=== PATIENT | female | born 2000 | race Caucasian/White ===

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

== ENCOUNTER → 2020-11-07 15:41 | Outpatient (CLI) | payer OTHER, SELFPAY ==
[2020-11-07 17:21] LABS: Basophils # 0.1 K/mm3 (0-0.2); Basophils % 0.6 % (0.1-2.0); Eosinophils # 0.1 K/mm3 (0.0-0.4); Eosinophils % 1.1 % (0.1-12.0); Hematocrit 42.7 % (37.0-47.0); Lymphocytes # 3.7 K/mm3 (0.7-4.5); Lymphocytes % 42.9 % (10-50); Mean Corpuscular HGB Conc 35.2 g/dL (31.8-35.4); Mean Corpuscular Hemoglobin 29.7 pg (27.0-31.2); Mean Corpuscular Volume 84.5 fl (81-99); Mean Platelet Volume 8.7 fl (7.4-10.4); Monocytes # 0.5 K/mm3 (0.1-1.0); Neutrophils # 4.3 K/mm3 (1.8-7.8); Neutrophils % 49.4 % (37.0-80.0); Platelet Count 347 K/mm3 (142-424); Red Blood Count 5.06 M/mm3 (4.20-5.40); Red Cell Distribution Width 13.3 % (11.5-17.5); White Blood Count 8.7 K/mm3 (4.5-13.0)
[2020-11-07 17:32] LABS: Chloride 103 mmol/L (98-107); Potassium 4.5 mmoL/L (3.5-5.1); Sodium 138 mmol/L (136-145)
[2020-11-07 17:34] LABS: Alanine Aminotransferase 33 U/L (12-78); Alkaline Phosphatase 96 U/L (38-126); Anion Gap 18.5 mEq/L (5-15); Aspartate Amino Transferase 34 U/L (14-36); Bilirubin,Total 0.9 mg/dl (0.2-1.3); Blood Urea Nitrogen 10 mg/dl (7-17); Carbon Dioxide 21 mmol/L (22.0-30.0); Estimated Glomerular Filt Rate 127 ml/min (>60); GFR (African American) 154 ML/MIN (>60); Iron 132 ug/dL (37-170)
[2020-11-07 17:35] LABS: Albumin Level 4.7 g/dl (3.5-5.0); Albumin/Globulin Ratio 1.5 (1.1-1.8); Calcium 9.5 mg/dl (8.4-10.2); Globulin 3.1 g/dL (1.3-3.2); Glucose 95 mg/dl (74-100); Total Protein,Serum 7.8 g/dl (6.3-8.2)
[2020-11-07 17:45] LABS: Total Iron Binding Capacity 327 ug/dL (265-497)
[2020-11-07 17:53] LABS: Triiodothryronine (T3) Uptake 32 % (23.5-40.5)
[2020-11-07 17:54] LABS: T4 (Thyroxine) 9.5 ug/dl (5.53-11.0)
[2020-11-07 18:00] LABS: Hemoglobin A1C 4.7 % (4.0-6.0)
[2020-11-07 18:07] LABS: Thyroid Stimulating Hormone 6.07 uIU/mL (0.465-4.68)
[2020-11-07 19:02] LABS: Vitamin B12 507 pg/mL (239-931)
[2020-11-09 10:11] LABS: FSH 4.9 mIU/mL (.); Progesterone 0.1 ng/mL (.)
[2020-11-11 20:09] LABS: Testosterone, Total, LC/MS 10.8 ng/dL (10.0-55.0)
[2020-11-15 18:15] LABS: 1,25 Dihydroxy Vitamin D 38 pg/mL (.); 1,25-Dihydroxy, Vitamin D-2 <10 pg/mL (.); 1,25-Dihydroxy, Vitamin D-3 38 pg/mL (.)
[2020-11-17 03:41] LABS: Estrogen 246 pg/mL (.)
== END ==
PROVIDERS: Visit Provider Nurse Practitioner Psychiatric/Mental Health
DX: Z00.00 Encounter for general adult medical examination without abnormal findings (principal); Z79.899 Other long term (current) drug therapy; R53.83 Other fatigue; E66.9 Obesity, unspecified; Z68.34 Body mass index [BMI] 34.0-34.9, adult
CPT/HCPCS: 36415; 80053; 82607; 82652; 82672; 83001; 83036; 83540; 83550; 84144; 84403; 84436; 84443; 84479; 85025

== ENCOUNTER → 2021-02-06 13:29 | Outpatient (CLI) | payer OTHER, SELFPAY | PROVIDERS: Visit Provider Physician Assistant | DX: Z20.822 Contact with and (suspected) exposure to COVID-19 (principal); R69 Illness, unspecified | CPT/HCPCS: C9803; U0003; U0005 ==

== ENCOUNTER → 2021-03-20 19:27 | Outpatient (CLI) | payer OTHER, SELFPAY ==
[2021-03-20 20:18] LABS: Free T4 (Free Thyroxine) 1.17 ng/dl (0.78-2.19)
[2021-03-20 20:47] LABS: Thyroid Stimulating Hormone 2.54 uIU/mL (0.465-4.68)
== END ==
PROVIDERS: Visit Provider Physician Assistant
DX: E03.9 Hypothyroidism, unspecified (principal)
CPT/HCPCS: 84439; 84443

== ENCOUNTER → 2021-06-12 16:40 | Outpatient (CLI) | payer OTHER, SELFPAY ==
[2021-06-12 17:23] LABS: Basophils # 0.1 K/mm3 (0-0.2); Basophils % 1.6 % (0.1-2.0); Eosinophils % 0.7 % (0.1-12.0); Hematocrit 46.8 % (37.0-47.0); Hemoglobin 14.8 g/dL (12.2-16.2); Lymphocytes # 2.9 K/mm3 (0.7-4.5); Lymphocytes % 44.9 % (10-50); Mean Corpuscular HGB Conc 31.6 g/dL (31.8-35.4); Mean Corpuscular Hemoglobin 29.4 pg (27.0-31.2); Mean Corpuscular Volume 92.8 fl (81-99); Mean Platelet Volume 9.8 fl (7.4-10.4); Monocytes # 0.5 K/mm3 (0.1-1.0); Monocytes % 7.8 % (1.7-9.3); Neutrophils # 2.9 K/mm3 (1.8-7.8); Neutrophils % 44.9 % (37.0-80.0); Platelet Count 356 K/mm3 (142-424); Red Blood Count 5.05 M/mm3 (4.20-5.40); Red Cell Distribution Width 13.4 % (11.5-17.5); White Blood Count 6.4 K/mm3 (4.5-13.0)
[2021-06-12 17:26] LABS: Alanine Aminotransferase 46 U/L (12-78); Albumin Level 4.8 g/dl (3.5-5.0); Albumin/Globulin Ratio 1.7 (1.1-1.8); Alkaline Phosphatase 72 U/L (38-126); Anion Gap 13.3 mEq/L (5-15); Aspartate Amino Transferase 44 U/L (14-36); Bilirubin,Total 0.7 mg/dl (0.2-1.3); Blood Urea Nitrogen 16 mg/dl (7-17); Calcium 9.7 mg/dl (8.4-10.2); Carbon Dioxide 25 mmol/L (22.0-30.0); Chloride 104 mmol/L (98-107); Estimated Glomerular Filt Rate 127 ml/min (>60); GFR (African American) 154 ML/MIN (>60); Globulin 2.8 g/dL (1.3-3.2); Glucose 93 mg/dl (74-100); Potassium 4.3 mmoL/L (3.5-5.1); Sodium 138 mmol/L (136-145); Total Protein,Serum 7.6 g/dl (6.3-8.2)
[2021-06-12 17:57] LABS: Thyroid Stimulating Hormone 1.19 uIU/mL (0.465-4.68)
[2021-06-14 09:34] LABS: FSH 8.1 mIU/mL (.); LH 7.7 mIU/mL (.)
[2021-06-15 07:38] LABS: Testosterone,Free 1.4 pg/mL (0.0-4.2)
== END ==
PROVIDERS: Visit Provider Physician Assistant
DX: N93.9 Abnormal uterine and vaginal bleeding, unspecified (principal); E03.9 Hypothyroidism, unspecified
CPT/HCPCS: 80053; 83001; 83002; 84402; 84443; 85025

== ENCOUNTER → 2021-06-18 14:56 | Outpatient (CLI) | payer OTHER, SELFPAY ==
--- NOTE | 2021-06-18 14:56 | US_ITS ---
FINAL REPORT CLINICAL HISTORY: ?PCOS FINDINGS: Pelvic Ultrasound Technique: Transvaginal and transabdominal sonographic images of the pelvis were obtained. Findings: The uterus is normal in size. The endometrium is within normal limits. The right ovary measures up to 3 cm. There are multiple subcentimeter anechoic foci within the right ovary favoring follicles. The left ovary is not visualized. There is no significant free fluid. IMPRESSION: Multiple subcentimeter anechoic structures in the right ovary favor follicles. Left ovary not visualized. Reviewed, Interpreted and Dictated by Juan Dixon MD Transcribed by Gabriel Dixon Authenticated by Juan Dixon MD on 06/18/2021 04:52:41 PM [facility]
== END ==
PROVIDERS: PCP Physician Assistant; Visit Provider Physician Assistant
DX: N92.1 Excessive and frequent menstruation with irregular cycle (principal)
CPT/HCPCS: 76830

== ENCOUNTER → 2021-06-28 08:12 | Outpatient (CLI) | payer OTHER, SELFPAY ==
--- NOTE | 2021-06-28 08:13 | MR_ITS ---
PROCEDURE INFORMATION: Exam: MR Pelvis Without Contrast Exam date and time: 06/28/2021 8:13 AM Age: 20 years old Clinical indication: Abnormal findings; Abnormal imaging test; Additional info: Left ovary not visible on US TECHNIQUE: Imaging protocol: Magnetic resonance images of the pelvis without intravenous contrast. COMPARISON: Report from transvaginal ultrasound 06/18/2021 (images not available) FINDINGS: Limitations: Motion artifact. Intraperitoneal space: A mild amount of fluid is present adjacent to each ovary, right greater than left. Reproductive: The right ovary measures 3.7 x 1.9 x 3.8 cm with a volume of 14 mL. The left ovary measures 2.2 x 2 x 3.4 cm with a volume of 7.8 mL. Each ovary contains multiple cysts/follicles with a predominantly peripheral location. No suspicious mass. No uterine abnormality. Bones/joints: There is no suspicious bone lesion or fracture. Soft tissues: There is no suspicious soft tissue mass. IMPRESSION: 1. Prominent ovaries with multiple peripherally located cysts/follicles, which could represent polycystic ovarian morphology. 2. Mild free fluid adjacent to each ovary.
== END ==
PROVIDERS: PCP Physician Assistant; Visit Provider Physician Assistant
DX: R93.89 Abnormal findings on diagnostic imaging of other specified body structures (principal)
CPT/HCPCS: 72195

== ENCOUNTER → 2022-01-15 06:34 | Outpatient (CLI) | payer OTHER, SELFPAY ==
[2022-01-15 18:18] LABS: Albumin Level 4.5 g/dl (3.5-5.0); Albumin/Globulin Ratio 1.5 (1.1-1.8); Alkaline Phosphatase 82 U/L (38-126); Anion Gap 16.3 mEq/L (5-15); Bilirubin,Total 0.5 mg/dl (0.2-1.3); Blood Urea Nitrogen 8 mg/dl (7-17); Calcium 9.8 mg/dl (8.4-10.2); Carbon Dioxide 20 mmol/L (22.0-30.0); Chloride 107 mmol/L (98-107); Chol/HDL Ratio 3.6 (1-3.5); Cholesterol 178 mg/dl (140-200); Estimated Glomerular Filt Rate 156 ml/min (>60); GFR (African American) 188 ML/MIN (>60); Glucose 102 mg/dl (74-100); HDL Cholesterol 50 mg/dl (40-60); Potassium 4.3 mmoL/L (3.5-5.1); Sodium 139 mmol/L (136-145); Total Protein,Serum 7.5 g/dl (6.3-8.2); Triglycerides 256 mg/dl (30-150); VLDL Cholesterol 51 mg/dL (0-40)
[2022-01-15 18:19] LABS: Basophils # 0.1 K/mm3 (0-0.2); Basophils % 0.7 % (0.1-2.0); Eosinophils # 0.1 K/mm3 (0.0-0.4); Eosinophils % 0.7 % (0.1-12.0); Hematocrit 44.9 % (37.0-47.0); Hemoglobin 14.6 g/dL (12.2-16.2); Lymphocytes % 37.4 % (10-50); Mean Corpuscular HGB Conc 32.6 g/dL (31.8-35.4); Mean Corpuscular Hemoglobin 30.2 pg (27.0-31.2); Mean Corpuscular Volume 92.5 fl (81-99); Mean Platelet Volume 9.3 fl (7.4-10.4); Monocytes # 0.5 K/mm3 (0.1-1.0); Monocytes % 6.6 % (1.7-9.3); Neutrophils # 4.4 K/mm3 (1.8-7.8); Neutrophils % 54.6 % (37.0-80.0); Platelet Count 410 K/mm3 (142-424); Red Blood Count 4.85 M/mm3 (4.20-5.40); Red Cell Distribution Width 13.2 % (11.5-17.5)
[2022-01-15 18:33] LABS: Alanine Aminotransferase 59 U/L (12-78); Aspartate Amino Transferase 51 U/L (14-36)
[2022-01-17 08:24] LABS: Direct LDL Cholesterol 82 mg/dL (100-129)
== END ==
PROVIDERS: PCP Physician Assistant; Visit Provider Physician Assistant
DX: E03.9 Hypothyroidism, unspecified (principal); E66.01 Morbid (severe) obesity due to excess calories; Z68.41 Body mass index [BMI] 40.0-44.9, adult
CPT/HCPCS: 80053; 80061; 82306; 84443; 85025

== ENCOUNTER 2022-03-25 22:07 | Emergency (ER) | payer OTHER, SELFPAY ==
[2022-03-25 22:09] VITALS: BP 117/81; PULSE 108; RESP 16; TEMP 36.9; O2SAT 99; BMI 40.2
[2022-03-25 22:30] VITALS: BP 117/81; PULSE 104; O2SAT 96
--- NOTE | 2022-03-25 22:42 | CT_ITS ---
PROCEDURE INFORMATION: Exam: CT Abdomen And Pelvis With Contrast Exam date and time: 03/25/2022 11:27 PM Age: 21 years old Clinical indication: Nausea and vomiting; Abdominal pain; Patient HX: PT C/O intermittent n/v, abd pain; Additional info: Abd pain nv/d TECHNIQUE: Imaging protocol: Computed tomography of the abdomen and pelvis with contrast. Radiation optimization: All CT scans at this facility use at least one of these dose optimization techniques: automated exposure control; mA and/or kV adjustment per patient size (includes targeted exams where dose is matched to clinical indication); or iterative reconstruction. Contrast material: ISOVUE; Contrast volume: 75 ml; Contrast route: IV; COMPARISON: MR PELVIS WO CON 06/28/2021 8:27 AM FINDINGS: Liver: Mildly enlarged. Fatty infiltration. Gallbladder and bile ducts: No calcified stones. No ductal dilation. Pancreas: Unremarkable. No ductal dilation. Spleen: No splenomegaly. Adrenal glands: No mass. Kidneys and ureters: Lobulated kidneys. No significant hydronephrosis. Stomach and bowel: No definite mural thickening. No obstruction. Appendix: Normal caliber. No inflammation. Intraperitoneal space: Trace free fluid within pelvis. No free air. Vasculature: Unremarkable. No aneurysm. Lymph nodes: No pathologically enlarged lymph nodes. Urinary bladder: Borderline bladder wall thickening, up to 4-5 mm. Incomplete distention, limiting evaluation. Reproductive: 2.3 x 2.0 x 2.6 cm faint peripherally enhancing hypodensity with crenulated margins within RIGHT ovary. Bones/joints: Probable bone islands. No acute fracture. Soft tissues: Tiny umbilical hernia containing fat. IMPRESSION: 1. Probable involuting or ruptured RIGHT corpus luteum/cyst. 2. Cystitis vs underdistention. Correlate with urinalysis.
[2022-03-25 22:53] LABS: Microscopic, Urine URINE MICROSCOPIC (MICROSCOPIC)
[2022-03-25 22:55] LABS: Appearance,Urine CLEAR (Clear); Blood, Urine 3+ (Negative); Color,Urine YELLOW (Yellow); Glucose,Urine (UA) Negative (Negative); Ketones,Urine Negative (Negative); Leukocyte Esterase,Urine 1+ (Negative); Nitrate,Urine Negative (Negative); Protein,Urine 1+ (Negative)
[2022-03-25 23:00] VITALS: BP 122/87; PULSE 109; O2SAT 97
[2022-03-25 23:08] LABS: Bilirubin,Urine 1+ (Negative)
[2022-03-25 23:18] LABS: Basophils # 0.1 K/mm3 (0-0.2); Basophils % 0.7 % (0.1-2.0); Eosinophils % 0.4 % (0.1-12.0); Hematocrit 42.9 % (37.0-47.0); Hemoglobin 14.5 g/dL (12.2-16.2); Lymphocytes # 4.7 K/mm3 (0.7-4.5); Lymphocytes % 44.3 % (10-50); Mean Corpuscular HGB Conc 33.8 g/dL (31.8-35.4); Mean Corpuscular Hemoglobin 31.1 pg (27.0-31.2); Mean Corpuscular Volume 91.9 fl (81-99); Mean Platelet Volume 8.6 fl (7.4-10.4); Monocytes # 0.6 K/mm3 (0.1-1.0); Monocytes % 5.2 % (1.7-9.3); Neutrophils # 5.3 K/mm3 (1.8-7.8); Neutrophils % 49.4 % (37.0-80.0); Platelet Count 405 K/mm3 (142-424); Red Blood Count 4.67 M/mm3 (4.20-5.40); Red Cell Distribution Width 13.2 % (11.5-17.5); White Blood Count 10.7 K/mm3 (4.8-10.8)
[2022-03-25 23:20] LABS: Bacteria,Urine Trace /lpf; Urine Pregnancy, HCG Qual. Negative (Negative)
[2022-03-25 23:23] LABS: Chloride 100 mmol/L (98-107); Potassium 3.6 mmoL/L (3.5-5.1); Sodium 140 mmol/L (136-145)
[2022-03-25 23:25] LABS: Amylase 63 U/L (30-110); Blood Urea Nitrogen 5 mg/dl (7-17); Creatinine Clearance Estimated 234 mL/min (50-200); Estimated Glomerular Filt Rate 126 ml/min (>60); GFR (African American) 153 ML/MIN (>60)
[2022-03-25 23:26] LABS: Alanine Aminotransferase 72 U/L (12-78); Albumin Level 4.7 g/dl (3.5-5.0); Albumin/Globulin Ratio 1.6 (1.1-1.8); Alkaline Phosphatase 86 U/L (38-126); Anion Gap 18.6 mEq/L (5-15); Aspartate Amino Transferase 69 U/L (14-36); Bilirubin,Total 0.6 mg/dl (0.2-1.3); Calcium 9.8 mg/dl (8.4-10.2); Carbon Dioxide 25 mmol/L (22.0-30.0); Glucose 91 mg/dl (74-100); Lipase 118 U/L (23-300); Total Protein,Serum 7.7 g/dl (6.3-8.2)
[2022-03-26] VITALS: BP 121/87; PULSE 95; O2SAT 96
--- NOTE | 2022-03-26 00:51 | PC.NURSE ---
Pt provided with warm blanket. No other needs or complaints voiced.
--- NOTE | 2022-03-26 00:53 | HMH.EDNVD ---
Discharge Plan Disposition Patient Disposition: Home, Self-Care Chief Complaint: Nausea/Vomiting/Diarrhea Prescriptions Prescriptions: No Action albuterol sulfate 90 mcg/actuation HFA aerosol inhaler 2 puff inhalation Q4-6H PRN (Reason: shortness of breath or wheezing) Qty: 8.5 3RF sucralfate [Carafate] 1 gram tablet 1 g PO QACHS Qty: 120 2RF omeprazole 40 mg capsule,delayed release(DR/EC) 40 mg PO DAILY Qty: 90 0RF Rx Instructions: swallow whole; do not crush, chew, dissolve, cut, break Ozempic 0.25 mg or 0.5 mg(2 mg/1.5 mL) pen injector 0.25 mg SQ WEEKLY Qty: 1.5 2RF Rx Instructions: for 4 doses, then increase to 0.5 mg daily spironolactone [Aldactone] 25 mg tablet 25 mg PO DAILY Qty: 90 3RF norgestimate-ethinyl estradiol [Adz-Mq-Yxkrsrao] 0.18/0.215/0.25 mg-25 mcg tablet 1 tab PO DAILY Qty: 28 5RF levothyroxine 25 mcg tablet See Rx Instructions .ROUTE .COMPLEX Qty: 90 3RF Dose Instruction: TAKE 1 TABLET BY MOUTH DAILY Rx Instructions: TAKE 1 TABLET BY MOUTH DAILY Caplyta 42 mg capsule 42 mg PO DAILY Qty: 30 1RF Viibryd 20 mg tablet See Rx Instructions PO DAILY 30 Days Qty: 45 1RF Rx Instructions: take 1.5 tablets (30mg) PO daily; must administer with a meal/food Referrals Follow up/Referrals: Joie Harrison PA [Primary Care Provider] - See instructions Jerel Mckeon MD [Staff Physician] - See instructions Clinical Impressions Clinical Impression: Acute upper GI bleed Instructions Patient Instructions: Gastrointestinal Bleeding Discharge ED Provider: Kiet Deluna Nausea/Vomiting/Diarrhea HPI General Chief complaint: Nausea/Vomiting/Diarrhea Stated complaint: V/N Time Seen by Provider: 03/26/22 00:53 Mode of Arrival: Ambulatory Source of Information: Patient and Medical Record Limitations: No Limitations Description of Symptoms (Recalled from ER Triage Doc. by RN): pt c/o n/v/d that started yesterday with abd pain that comes and goes. pt states when vomiting today there was blood in ti History of Present Illness HPI Narrative: upper abd pain with vomiting blood over the last few days - dark stool complaint: nausea and abdominal pain Onset (ago): day(s) Description of Vomiting: coffee grounds Associated Abdominal Pain: Yes Location of pain: epigastric Severity: moderate Associated symptoms: denies other symptoms Related Data Previous Rx's Medication Instructions Recorded spironolactone 25 mg tablet 25 mg PO DAILY PCOS #90 tabs 07/09/21 (Aldactone) norgestimate 0.18 mg/0.215 mg/0.25 1 tab PO DAILY #28 tabs 01/05/22 mg-ethinyl estradiol 25 mcg tablet (Ojh-Us-Vlypuctg) levothyroxine 25 mcg tablet See Rx Instructions .Route 01/07/22 .COMPLEX #90 tabs albuterol sulfate 90 mcg/actuation 2 puff inhalation Q4-6H PRN 01/15/22 aerosol inhaler shortness of breath or wheezing #8.5 grams omeprazole 40 mg capsule,delayed 40 mg PO DAILY #90 caps 01/15/22 release semaglutide 0.25 mg or 0.5 mg (2 0.25 mg (0.2 mL) SQ WEEKLY #1.5 mL 01/15/22 mg/1.5 mL) subcutaneous pen injector (Ozempic) sucralfate 1 gram tablet (Carafate) 1 g PO QACHS #120 tabs 01/15/22 lumateperone 42 mg capsule 42 mg PO DAILY #30 caps 03/05/22 (Caplyta) vilazodone 20 mg tablet (Viibryd) See Rx Instructions PO DAILY 30 03/05/22 days #45 tabs Allergies Allergy/AdvReac Type Severity Reaction Status Date / Time No Known Allergies [facility] Verified 01/15/22 14:25 [facility] Medical History (Updated 03/26/22 @ 01:47 by Kiet Deluna MD) Allergic rhinitis Anxiety and depression Asthma H/O borderline personality disorder Hypothyroidism PCOS (polycystic ovarian syndrome) Suicide attempt by drug overdose Social History (Updated 01/16/22 @ 10:51 by MARINO Weldon) Smoking Status: Never smoker alcohol intake: current substance use type: denies use current occupational status: unemployed Travel in
[2022-03-26 01:01] VITALS: BP 139/77; PULSE 106; O2SAT 93
[2022-03-26 01:05] LABS: Occult Blood,Stool Positive (Negative)
--- NOTE | 2022-03-26 01:30 | PC.NURSE ---
Paged Dr. Mckeon
[2022-03-26 01:44] VITALS: BP 121/75; PULSE 82; RESP 18; TEMP 36.9; O2SAT 97
== END 2022-03-26 02:13 | disposition home or self-care (01) ==
PROVIDERS: Emergency Provider Emergency Medicine; PCP Physician Assistant
DX: K92.1 Melena (principal); R10.13 Epigastric pain; R06.02 Shortness of breath; R11.2 Nausea with vomiting, unspecified; R19.7 Diarrhea, unspecified; E03.9 Hypothyroidism, unspecified; G43.909 Migraine, unspecified, not intractable, without status migrainosus; F60.3 Borderline personality disorder; F32.A Depression, unspecified; F41.9 Anxiety disorder, unspecified; Z79.51 Long term (current) use of inhaled steroids; Z79.899 Other long term (current) drug therapy
CPT/HCPCS: 74177; 80053; 81001; 81025; 82150; 82272; 83690; 85025; 87086; 96361; 96374; 96375; 99285; G0328; Q9967

== ENCOUNTER 2022-03-26 07:30 | Day surgery (SDC) | payer OTHER, SELFPAY ==
--- NOTE | 2022-03-26 07:30 | SUR.PREOP ---
Pt progress number given to Pt's mom, verbalized understanding of system.
[2022-03-26 07:50] VITALS: BMI 40.2
[2022-03-26 07:54] VITALS: BP 136/84; PULSE 104; RESP 18; TEMP 36.2; O2SAT 96
[2022-03-26 08:24] VITALS: O2SAT 96
--- NOTE | 2022-03-26 08:40 | HMH.SCOPE ---
Procedure: Date: 03/26/22 Patient Date of :: 2000 Procedure Performed:: Esophagogastroduodenoscopy with biopsy Indications:: Hematemesis Melena Performing Provider:: Jerel Mckeon MD Referring Provider:: Dr. Deluna (Emergency Department) Sedation:: Monitored anesthesia care Procedure:: After informed consent was obtained the patient was taken to the endoscopy suite. Sedation ensued after the patient was transferred to the left lateral decubitus position. Pulse, blood pressure, and oxygen saturation were monitored throughout the procedure. The endoscope was advanced beyond the duodenal bulb. Retroflexion within the gastric lumen was accomplished. The gastroscope was carefully removed and the patient was transferred to recovery in stable condition. Please see findings and specimens below for detail. Findings:: Gastroesophageal junction at 39 cm Small sliding hiatal hernia No sign of active or recent hemorrhage No obvious ulceration Mild antral gastropathy/gastritis Specimens:: Antral biopsy Recommendations:: Continue current medical therapy Follow-up pathology May benefit from UGI/SBFT followed by capsule endoscopy Complications:: No immediate Estimated blood obtained (mL): 1
[2022-03-26 08:42] VITALS: BP 105/62; PULSE 88; RESP 16; TEMP 36.1; O2SAT 92
--- NOTE | 2022-03-26 08:50 | P.PN_ITS ---
[facility] PFS Medical History (Updated 03/26/22 @ 07:53 by Carol Calix RN) Allergic rhinitis Anxiety and depression Asthma H/O borderline personality disorder Hypothyroidism Migraine PCOS (polycystic ovarian syndrome) Suicide attempt by drug overdose Surgical History (Updated 03/26/22 @ 07:53 by Carol Calix RN) History of wisdom tooth extraction Family History (Updated 03/26/22 @ 07:53 by Carol Calix RN) Other No significant family history Social History (Updated 03/26/22 @ 07:53 by Carol Calix RN) Smoking Status: Never smoker alcohol intake: current substance use type: denies use current occupational status: unemployed Travel in the last 8 weeks: None number of children: 0 [facility] Anesthesia Checklist Patient Identification Patient Identification: Arm Band Structural Data Admitted From: Home Planned Operative Procedure/s: EGD Consent for Planned Operative Procedure(s) Verified: Yes Verified Documents: Surgical Consent and History and Physical NPO Status Verified Time NPO: 00:00 Additional verifications Anesthesia Reactions: No Airway Assessment C-Spine Mobility Assessed: Yes TMJ Mobility Assessed: Yes Dentition: Good Dentition Neurological Assessment Level of Consciousness: Awake and Alert Anesthesia Plan Anesthesia Risk discussed: Yes Anesthesia Plan: Verified ASA Class: II Anesthesia Type: MAC
[2022-03-26 08:52] VITALS: BP 124/76; PULSE 96; RESP 18; O2SAT 97
[2022-03-26 09:02] VITALS: BP 124/73; PULSE 93; RESP 18; O2SAT 97
== END 2022-03-26 09:00 | disposition home or self-care (01) ==
PROVIDERS: PCP Physician Assistant; Visit Provider Surgery
PROC: 0DJ08ZZ Inspection of Upper Intestinal Tract, Via Natural or Artificial Opening Endoscopic (ICD-10-PCS; CPT 43235; principal; 2022-03-26 08:00)
DX: K92.1 Melena (principal); K92.0 Hematemesis; K46.9 Unspecified abdominal hernia without obstruction or gangrene; Z79.899 Other long term (current) drug therapy; K31.9 Disease of stomach and duodenum, unspecified
CPT/HCPCS: 43239

== ENCOUNTER → 2022-04-08 11:25 | Outpatient (CLI) | payer OTHER, SELFPAY ==
[2022-04-08 11:55] LABS: Basophils # 0.1 K/mm3 (0-0.2); Basophils % 0.8 % (0.1-2.0); Eosinophils # 0.1 K/mm3 (0.0-0.4); Eosinophils % 0.8 % (0.1-12.0); Hematocrit 44.8 % (37.0-47.0); Hemoglobin 14.5 g/dL (12.2-16.2); Lymphocytes # 2.8 K/mm3 (0.7-4.5); Lymphocytes % 34.9 % (10-50); Mean Corpuscular HGB Conc 32.3 g/dL (31.8-35.4); Mean Corpuscular Hemoglobin 30.4 pg (27.0-31.2); Mean Platelet Volume 8.6 fl (7.4-10.4); Monocytes # 0.4 K/mm3 (0.1-1.0); Monocytes % 4.7 % (1.7-9.3); Neutrophils # 4.7 K/mm3 (1.8-7.8); Neutrophils % 58.7 % (37.0-80.0); Platelet Count 356 K/mm3 (142-424); Red Blood Count 4.77 M/mm3 (4.20-5.40); Red Cell Distribution Width 13.4 % (11.5-17.5); White Blood Count 8.1 K/mm3 (4.8-10.8)
[2022-04-08 15:42] LABS: Chloride 104 mmol/L (98-107); Sodium 140 mmol/L (136-145)
[2022-04-08 15:43] LABS: Potassium 4.1 mmoL/L (3.5-5.1)
[2022-04-08 15:45] LABS: Alanine Aminotransferase 99 U/L (12-78); Alkaline Phosphatase 85 U/L (38-126); Amylase 51 U/L (30-110); Anion Gap 21.1 mEq/L (5-15); Aspartate Amino Transferase 55 U/L (14-36); Bilirubin,Total 0.5 mg/dl (0.2-1.3); Blood Urea Nitrogen 9 mg/dl (7-17); Calcium 10.5 mg/dl (8.4-10.2); Carbon Dioxide 19 mmol/L (22.0-30.0); Estimated Glomerular Filt Rate 106 ml/min (>60); GFR (African American) 128 ML/MIN (>60); Glucose 112 mg/dl (74-100); Lipase 142 U/L (23-300)
[2022-04-08 15:46] LABS: Albumin Level 4.7 g/dl (3.5-5.0); Albumin/Globulin Ratio 1.7 (1.1-1.8); Globulin 2.8 g/dL (1.3-3.2); Total Protein,Serum 7.5 g/dl (6.3-8.2)
== END ==
PROVIDERS: PCP Physician Assistant; Visit Provider Surgery
DX: R10.11 Right upper quadrant pain (principal); R11.0 Nausea
CPT/HCPCS: 36415; 80053; 82150; 83690; 85025

== ENCOUNTER → 2022-04-10 09:19 | Outpatient (CLI) | payer OTHER, SELFPAY ==
--- NOTE | 2022-04-10 09:30 | US_ITS ---
FINAL REPORT CLINICAL HISTORY: Right upper quad pain FINDINGS: Ultrasound images of the right upper quadrant were obtained. The liver parenchyma has increased echogenicity. The gallbladder is well visualized and the wall appears normal. There are no gallstones. The common duct is normal. Limited images of the right kidney are unremarkable. IMPRESSION: Fatty liver. Reviewed, Interpreted and Dictated by Juan Dixon MD Transcribed by Gabriel Dixon Authenticated and [facility]
== END ==
PROVIDERS: PCP Physician Assistant; Visit Provider Surgery
DX: R10.11 Right upper quadrant pain (principal); R11.0 Nausea
CPT/HCPCS: 76705

== ENCOUNTER → 2022-04-17 08:57 | Outpatient (CLI) | payer OTHER, SELFPAY ==
--- NOTE | 2022-04-17 09:00 | NM_ITS ---
FINAL REPORT CLINICAL HISTORY: right upper quad pain no gallstones FINDINGS: Sequential anterior projection images of the abdomen were obtained after the intravenous injection of 8.62 mCi technetium 99m Choletec. There is normal uptake of radiotracer by the liver. The bile ducts are visualized by 5 minutes. Gallbladder activity is seen by 5 minutes. Bowel activity is not visualized by 60 minutes. After 1 hour, 2.0 ?g of CCK was injected intravenously in there was prompt visualization of the bowel. The gallbladder ejection fraction is 77 %, which is within normal limits. IMPRESSION: No evidence of cystic duct or bile duct obstruction. Normal gallbladder ejection fraction of 77 %. Reviewed, Interpreted and Dictated by Benedict Mars III, MD Transcribed by Ariane Graves Authenticated and [facility]
== END ==
PROVIDERS: PCP Physician Assistant; Visit Provider Surgery
DX: R10.11 Right upper quadrant pain (principal)
CPT/HCPCS: 78227; A9537; J2805

== ENCOUNTER → 2022-04-22 10:25 | Outpatient (CLI) | payer OTHER, SELFPAY ==
[2022-04-22 11:14] LABS: Hematocrit 43.6 % (37.0-47.0)
== END ==
PROVIDERS: PCP Physician Assistant; Visit Provider Surgery
DX: K92.2 Gastrointestinal hemorrhage, unspecified (principal)
CPT/HCPCS: 36415; 85014; 85018

== ENCOUNTER 2022-08-17 15:17 | Emergency (ER) | payer OTHER, SELFPAY ==
[2022-08-17] VITALS (16 sets, daily range): BP systolic 115–161; BP diastolic 78–106; PULSE 84–125; RESP 16–18; TEMP 36.8–36.9; O2SAT 96–100; BMI 42.0
--- NOTE | 2022-08-17 15:57 | HMH.EDGENADL ---
Discharge Plan Disposition Patient Disposition: Still a Patient Prescriptions Prescriptions: No Action albuterol sulfate 90 mcg/actuation HFA aerosol inhaler 2 puff inhalation Q4-6H PRN (Reason: shortness of breath or wheezing) Qty: 8.5 3RF Caplyta 42 mg capsule 42 mg PO DAILY Qty: 90 0RF vilazodone [Viibryd] 20 mg tablet 30 mg PO DAILY 90 Days Qty: 135 0RF norgestimate-ethinyl estradiol [Ark-Hi-Xbjhnerg] 0.18/0.215/0.25 mg-25 mcg tablet 1 tab PO DAILY Qty: 84 3RF levothyroxine 25 mcg tablet See Rx Instructions .ROUTE .COMPLEX Qty: 90 3RF Rx Instructions: TAKE 1 TABLET BY MOUTH DAILY sucralfate 1 gram tablet See Rx Instructions .ROUTE .COMPLEX Qty: 120 0RF Dose Instruction: TAKE ONE TABLET BY MOUTH BEFORE MEALS AND AT BEDTIME Rx Instructions: TAKE ONE TABLET BY MOUTH BEFORE MEALS AND AT BEDTIME spironolactone 25 mg tablet See Rx Instructions .ROUTE .COMPLEX Qty: 90 0RF Dose Instruction: TAKE ONE TABLET BY MOUTH DAILY FOR PCOS Rx Instructions: TAKE ONE TABLET BY MOUTH DAILY FOR PCOS propranolol 80 mg capsule,extended release 24hr See Rx Instructions .ROUTE .COMPLEX Qty: 30 2RF Dose Instruction: TAKE ONE CAPSULE BY MOUTH ONCE A DAY Rx Instructions: TAKE ONE CAPSULE BY MOUTH ONCE A DAY omeprazole 40 mg capsule,delayed release(DR/EC) 40 mg PO DAILY Rx Instructions: swallow whole; do not crush, chew, dissolve, cut, break Referrals Follow up/Referrals: Joie Harrison PA [Primary Care Provider] - See instructions Instructions Patient Instructions: DI for Acute Abdominal Pain Discharge ED Provider: Joaquín Veras General Adult HPI General Chief complaint: Abdominal Pain Stated complaint: Vomiting; diarrhea Time Seen by Provider: 08/17/22 15:20 Mode of Arrival: Ambulatory Source of Information: Patient Limitations: No Limitations Description of Symptoms (Recalled from ER Triage Doc. by RN): Pt c/o diarrhea onset 0800 today and N/V onset at 1230; h/o intestinal symptoms being worked up for Crohn's vs IBS, started on Linzess History of Present Illness HPI narrative: 22-year-old female with history of IBS PCOS hypothyroidism presents with worsening diarrhea nausea and vomiting today. Pain is epigastric dull nonradiating. She had episode of vomiting nonbloody nonbilious. Diarrhea watery no blood. No fever no chills. No dysuria hematuria vaginal bleeding or discharge. Feels like prior episodes. Related Data Home Medications Medication Instructions Recorded Confirmed omeprazole 40 mg capsule,delayed 40 mg PO DAILY acid reflux 03/26/22 07/16/22 release Previous Rx's Medication Instructions Recorded albuterol sulfate 90 mcg/actuation 2 puff inhalation Q4-6H PRN 01/15/22 aerosol inhaler shortness of breath or wheezing #8.5 grams levothyroxine 25 mcg tablet See Rx Instructions .Route 04/02/22 .COMPLEX thyroid #90 tabs norgestimate 0.18 mg/0.215 mg/0.25 1 tab PO DAILY control #84 04/22/22 mg-ethinyl estradiol 25 mcg tablet tabs (Rgm-Df-Hpqmhkem) sucralfate 1 gram tablet See Rx Instructions .Route 05/06/22 .COMPLEX #120 tabs spironolactone 25 mg tablet See Rx Instructions .Route 06/29/22 .COMPLEX #90 tabs lumateperone 42 mg capsule 42 mg PO DAILY Depression #90 caps 07/06/22 (Caplyta) vilazodone 20 mg tablet (Viibryd) 30 mg PO DAILY Depression 90 days 07/06/22 #135 tabs propranolol 80 mg capsule,24 See Rx Instructions .Route 07/20/22 hr,extended release .COMPLEX #30 caps Allergies Allergy/AdvReac Type Severity Reaction Status Date / Time No Known Allergies Allergy Verified 04/22/22 11:31 [facility] Disclaimer: The information contained in this section may have been updated after the patient was seen, as this information can be updated by other users. Medical History (Updated 05/14/22 @ 09:20 by MARINO Weldon) Acute upper GI bleed Allergic rhinitis Anxiety
[2022-08-17 16:13] LABS: Basophils # 0.1 K/mm3 (0-0.2); Basophils % 0.3 % (0.1-2.0); Eosinophils # 0.2 K/mm3 (0.0-0.4); Eosinophils % 1.3 % (0.1-12.0); Hematocrit 43.3 % (37.0-47.0); Hemoglobin 14.7 g/dL (12.2-16.2); Lymphocytes # 1.1 K/mm3 (0.7-4.5); Lymphocytes % 6.5 % (10-50); Mean Corpuscular HGB Conc 33.9 g/dL (31.8-35.4); Mean Corpuscular Hemoglobin 30.4 pg (27.0-31.2); Mean Corpuscular Volume 89.6 fl (81-99); Mean Platelet Volume 8.7 fl (7.4-10.4); Monocytes # 0.5 K/mm3 (0.1-1.0); Monocytes % 3.1 % (1.7-9.3); Neutrophils # 14.5 K/mm3 (1.8-7.8); Neutrophils % 88.8 % (37.0-80.0); Platelet Count 390 K/mm3 (142-424); Red Blood Count 4.83 M/mm3 (4.20-5.40); White Blood Count 16.4 K/mm3 (4.8-10.8)
[2022-08-17 16:14] LABS: MANUAL DIFFERENTIAL MANUAL DIFFERENTIAL (MANUAL DIFF)
[2022-08-17 16:18] LABS: Chloride 106 mmol/L (98-107); Potassium 4.2 mmoL/L (3.5-5.1); Sodium 138 mmol/L (136-145)
[2022-08-17 16:20] LABS: Blood Urea Nitrogen 10 mg/dl (7-17); Creatinine Clearance Estimated 100 mL/min (50-200); Estimated Glomerular Filt Rate 105 ml/min (>60); GFR (African American) 127 ML/MIN (>60)
[2022-08-17 16:21] LABS: Alanine Aminotransferase 63 U/L (12-78); Albumin Level 4.8 g/dl (3.5-5.0); Albumin/Globulin Ratio 1.5 (1.1-1.8); Alkaline Phosphatase 85 U/L (38-126); Anion Gap 18.2 mEq/L (5-15); Aspartate Amino Transferase 102 U/L (14-36); Calcium 9.4 mg/dl (8.4-10.2); Carbon Dioxide 18 mmol/L (22.0-30.0); Globulin 3.3 g/dL (1.3-3.2); Glucose 123 mg/dl (74-100); Lipase 123 U/L (23-300); Total Protein,Serum 8.1 g/dl (6.3-8.2)
[2022-08-17 16:24] LABS: HCG Qualitative, Serum Negative (Negative)
--- NOTE | 2022-08-17 16:33 | PC.NURSE ---
Warm blankets applied to patient
[2022-08-17 16:46] LABS: Eosinophils % 1 % (0-3); Lymphocytes % 11 % (10-50); Monocytes % 2 % (2-9); Neutrophils % 86 % (42-76); Platelet Estimate Normal; Total Cells Counted 100
[2022-08-17 16:47] LABS: RBC Morphology Normal
[2022-08-17 17:24] LABS: Microscopic, Urine URINE MICROSCOPIC (MICROSCOPIC)
[2022-08-17 17:27] LABS: Appearance,Urine CLEAR (Clear); Blood, Urine Negative (Negative); Color,Urine YELLOW (Yellow); Glucose,Urine (UA) Negative (Negative); Ketones,Urine 2+ (Negative); Leukocyte Esterase,Urine TRACE (Negative); Nitrate,Urine Negative (Negative); Protein,Urine Negative (Negative); Specific Gravity, Urine >= 1.030 (1.005-1.030); Urobilinogen,Urine 0.2 EU/dl (0.2)
[2022-08-17 17:30] LABS: Bilirubin,Urine 1+ (Negative)
[2022-08-17 17:36] LABS: Squamous Epithelial Cell,Urine Occasional #/hpf (0-5); WBC,Urine Occasional #/hpf (0-3)
--- NOTE | 2022-08-17 17:37 | CT_ITS ---
PROCEDURE INFORMATION: Exam: CT Abdomen And Pelvis With Contrast Exam date and time: 08/17/2022 5:45 PM Age: 22 years old Clinical indication: Abdominal pain TECHNIQUE: Imaging protocol: Computed tomography of the abdomen and pelvis with contrast. Radiation optimization: All CT scans at this facility use at least one of these dose optimization techniques: automated exposure control; mA and/or kV adjustment per patient size (includes targeted exams where dose is matched to clinical indication); or iterative reconstruction. Contrast material: ISOVUE; Contrast volume: 75 ml; Contrast route: IV; REPORTING DATA: Count of CT and Cardiac NM exams in prior 12 months: This patient has received [address] and 0 known cardiac nuclear medicine studies in the 12 months prior to the current study. COMPARISON: CT ABDOMEN PELVIS W CON 03/25/2022 11:27 PM FINDINGS: Liver: Diffuse low attenuation of the liver most likely secondary to fatty infiltration. Gallbladder and bile ducts: No calcified stones. No ductal dilation. Pancreas: Normal enhancement. No ductal dilation. Spleen: No splenomegaly. Adrenal glands: No mass. Kidneys and ureters: No hydronephrosis. Stomach and bowel: Colon is decompressed and not well evaluated. No bowel obstruction. Appendix: No evidence of appendicitis. Intraperitoneal space: No significant fluid collection. No free air. Vasculature: No abdominal aortic aneurysm. Lymph nodes: No enlarged lymph nodes. Urinary bladder: Borderline bladder wall thickening measuring 6 mm. Urinary bladder is under distended. Reproductive: Ovarian follicles. Bones/joints: Scoliosis. No acute fracture. Soft tissues: No soft tissue swelling. IMPRESSION: 1. Diffuse low attenuation of the liver most likely secondary to fatty infiltration. 2. Borderline bladder wall thickening which may in part be secondary to underdistention however correlation with UA is recommended.
--- NOTE | 2022-08-17 17:40 | PC.NURSE ---
pt to ct
--- NOTE | 2022-08-17 17:50 | PC.NURSE ---
Pt returned from CT scan
--- NOTE | 2022-08-17 19:03 | PC.NURSE ---
pt given ice water at this time, pt reports feeling better, no nausea at this time.
--- NOTE | 2022-08-17 21:32 | PC.NURSE ---
Pt updated on POC per Luana Boyce RN
--- NOTE | 2022-08-17 21:33 | PC.NURSE ---
Radiology speaking with [facility] about getting scans read. Pt aware and no needs voiced.
== END 2022-08-17 22:15 | disposition home or self-care (01) ==
PROVIDERS: Emergency Provider Emergency Medicine; PCP Physician Assistant
DX: R10.13 Epigastric pain (principal); R11.2 Nausea with vomiting, unspecified; R19.7 Diarrhea, unspecified
CPT/HCPCS: 74177; 80053; 81001; 83690; 84703; 85007; 85025; 96360; 96374; 96375; 99285; J2405; Q9967

== ENCOUNTER 2023-10-28 18:00 | Outpatient (CLI) | payer OTHER, SELFPAY ==
[2023-10-28 18:15] LABS: Basophils # 0.1 K/mm3 (0-0.2); Basophils % 0.8 % (0.1-2.0); Eosinophils # 0.1 K/mm3 (0.0-0.4); Eosinophils % 0.7 % (0.1-12.0); Hematocrit 45.6 % (37.0-47.0); Hemoglobin 14.9 g/dL (12.2-16.2); Lymphocytes # 3.2 K/mm3 (0.7-4.5); Lymphocytes % 36.6 % (10-50); Mean Corpuscular HGB Conc 32.8 g/dL (31.8-35.4); Mean Corpuscular Volume 94.5 fl (81-99); Mean Platelet Volume 9.9 fl (7.4-10.4); Monocytes # 0.5 K/mm3 (0.1-1.0); Monocytes % 5.2 % (1.7-9.3); Neutrophils % 56.7 % (37.0-80.0); Platelet Count 319 K/mm3 (142-424); Red Blood Count 4.82 M/mm3 (4.20-5.40); Red Cell Distribution Width 13.9 % (11.5-17.5); White Blood Count 8.9 K/mm3 (4.8-10.8)
[2023-10-28 18:43] LABS: Alanine Aminotransferase 59 U/L (12-78); Albumin/Globulin Ratio 1.6 (1.1-1.8); Alkaline Phosphatase 72 U/L (38-126); Anion Gap 18.9 mEq/L (5-15); Aspartate Amino Transferase 48 U/L (14-36); Bilirubin,Total 0.9 mg/dl (0.2-1.3); Blood Urea Nitrogen 11 mg/dl (7-17); Calcium 10.2 mg/dl (8.4-10.2); Carbon Dioxide 24 mmol/L (22.0-30.0); Chloride 103 mmol/L (98-107); Chol/HDL Ratio 2.8 (1-3.5); Cholesterol 165 mg/dl (140-200); Estimated Glomerular Filt Rate 104 ml/min (>60); GFR (African American) 125 ML/MIN (>60); Globulin 3.2 g/dL (1.3-3.2); Glucose 70 mg/dl (74-100); HDL Cholesterol 59 mg/dl (40-60); Potassium 3.9 mmoL/L (3.5-5.1); Sodium 142 mmol/L (136-145); Total Protein,Serum 8.2 g/dl (6.3-8.2); Triglycerides 125 mg/dl (30-150); VLDL Cholesterol 25 mg/dL (0-40)
[2023-10-28 18:54] LABS: Direct LDL Cholesterol 86.18 mg/dL (100-129)
[2023-10-28 19:03] LABS: 25-OH Vitamin D, Total 39.7 ng/mL (30-100)
[2023-10-28 19:33] LABS: Vitamin B12 914 pg/mL (239-931)
== END 2023-10-28 23:59 | disposition home or self-care (01) ==
LOC: LAB.DROPOF 10-29 07:45
PROVIDERS: PCP Physician Assistant; Visit Provider Physician Assistant
DX: E03.9 Hypothyroidism, unspecified (principal); E28.2 Polycystic ovarian syndrome; K21.9 Gastro-esophageal reflux disease without esophagitis; F17.290 Nicotine dependence, other tobacco product, uncomplicated; Z68.41 Body mass index [BMI] 40.0-44.9, adult; E66.9 Obesity, unspecified
CPT/HCPCS: 80050; 80053; 80061; 82306; 82607; 84443; 85025

== ENCOUNTER 2023-12-29 16:10 | Emergency (ER) | payer OTHER, SELFPAY ==
[2023-12-29 16:25] VITALS: BP 138/98; PULSE 113; RESP 20; TEMP 37.4; O2SAT 97; BMI 40.0
--- NOTE | 2023-12-29 16:40 | ED_ITS ---
Discharge Plan Disposition Patient Disposition: Home, Self-Care Condition: Good Prescriptions Prescriptions: No Action albuterol sulfate 90 mcg/actuation HFA aerosol inhaler 2 puff inhalation Q4-6H PRN (Reason: shortness of breath or wheezing) Qty: 8.5 3RF Caplyta 42 mg capsule 42 mg PO DAILY Qty: 90 0RF vilazodone [Viibryd] 20 mg tablet 30 mg PO DAILY 90 Days Qty: 135 0RF omeprazole 40 mg capsule,delayed release(DR/EC) 40 mg PO DAILY Qty: 90 3RF Rx Instructions: swallow whole; do not crush, chew, dissolve, cut, break spironolactone 25 mg tablet See Rx Instructions .ROUTE .COMPLEX Qty: 90 3RF Dose Instruction: TAKE ONE TABLET BY MOUTH DAILY FOR PCOS Rx Instructions: TAKE ONE TABLET BY MOUTH DAILY FOR PCOS nicotine 7 mg/24 hr patch 24 hour 1 patch transdermal Q24H Qty: 14 0RF levothyroxine 25 mcg tablet See Rx Instructions .ROUTE .COMPLEX Qty: 30 0RF Dose Instruction: TAKE ONE TABLET BY MOUTH ONCE A DAY Rx Instructions: TAKE ONE TABLET BY MOUTH ONCE A DAY Referrals Follow up/Referrals: Joie Harrison PA [Primary Care Provider] - See instructions Lucian Vernon MD [Staff Physician] - See instructions (Call office for appointment) Activity Restrictions/Add. Instructions Additional Instructions/Restrictions: No sexual activity until seen and cleared by OB Call OB clinic you was given the number and make appointment Scheduling will be calling you with date and time for your Transvaginal Ultra Sound make sure to answer the call and keep appointment Return if needed Follow up with your Family Doctor if needed Clinical Impressions Clinical Impression: Irregular bleeding, Painful sexual intercourse Instructions Patient Instructions: When Love Hurts: Causes and Cures for Painful Sex, Dyspareunia Print Language Print Language: Kinyarwanda Discharge ED Provider: Shantell Jones [facility] HPI General Stated complaint: vaginal bleeding during intercourse cramps Mode of Arrival: Ambulatory Source of Information: Patient Limitations: No Limitations Time Seen by Provider: 12/29/23 16:41 Description of Symptoms (Recalled from Triage Doc. by RN): PATIENT C/O VAGINAL BLEEDING AND PELVIC PAIN/TIGHTNESS THAT OCCURS DURING AND AFTER SEX AND STARTED APPROX 2 WEEKS AGO HEENT Symptoms (Recalled from RN notes): No Resp Symptoms (Recalled from RN notes): No Skin Symptoms (Recalled from RN notes): No MS Symptoms (Recalled from RN notes): No Functional Status (Recalled from RN notes): WNL History of Present Illness Provider Complaint: Patient states that she hasnt been sexually active for awhile but became active in the last 2 weeks States since becoming active she has been having bleeding during and after sex and feels like she has pelvic discomfort and tightness states that she will bleed after sex then it stops States initially it was a little rough but the last few times it has not Related Data Home Medications ?Medication ?Instructions ?Recorded ?Confirmed lumateperone 42 mg capsule 42 mg PO DAILY 12/29/23 12/29/23 (Caplyta) omeprazole 40 mg capsule,delayed 40 mg PO DAILY 12/29/23 12/29/23 release spironolactone 25 mg tablet 25 mg PO DAILY 12/29/23 12/29/23 vilazodone 20 mg tablet 20 mg PO DAILY 12/29/23 12/29/23 Allergies Allergy/AdvReac Type Severity Reaction Status Date / Time No Known Allergies Allergy Verified 11/22/23 15:12 Worker's Comp Is this a Worker's Comp case?: No [facility] Dis[facility]: The information contained in this section may have been updated after the patient was seen, as this information can be updated by other users. Medical History (Updated 12/29/23 @ 17:04 by Shantell Jones APRN) Tachycardia Migraine Acute upper GI bleed PCOS (polycystic ovarian syndrome) H/O borderline personality disorder Anxiety and depression Allergic rhinitis Asthma Hypothyroidism Suicide attempt by drug overdose Surgical History History of wisdom tooth extraction Family History Other No significant family history Social History Smoking Status: Never smoker alcohol intake: current alcohol intake frequency: holidays/special occasions only substance use type: denies use current occupational status: unemployed Travel in the last 8 weeks: None number of children: 0 ROS Obtained: Yes All systems reviewed & no additional complaints except as documented and Yes Systems reviewed as appropriate & no additional complaints except as documented Constitutional Constitutional: Reports system reviewed and no additional complaints, except as documented, Reports as per HPI, Denies body ache, Denies chills and Denies fever(s) ENT Ears, Nose, Mouth, and Throat: Reports system reviewed and no additional complaints, except as documented and Reports as per HPI Cardiovascular Cardiovascular: Reports system reviewed and no additional complaints, except as documented and Reports as per HPI Respiratory Respiratory: Reports system reviewed and no additional complaints, except as documented and Reports as per HPI Gastrointestinal Gastrointestingal: Reports system reviewed and no additional complaints, except as documented and as per HPI; Denies abdominal pain, cramping, nausea or vomiting Genitourinary Female Genitourinary: Reports system reviewed and no additional complaints, except as documented, Reports as per HPI, Reports abnormal vaginal bleeding, Reports dyspareunia, Reports metrorrhagia, Denies urinary frequency, Denies urinary urgency, Denies vaginal discharge, Denies vaginal dryness, Denies vaginal odor and Denies vaginal pruritus Physical Exam General General appearance: alert and in no apparent distress ENT ENT exam: Present mucous membranes moist Respiratory Respiratory exam: Present normal lung sounds bilaterally; Absent respiratory distress or wheezes Cardiovascular Cardiovascular exam: Present regular rate, normal rhythm and normal heart sounds Abdominal Exam Abdominal exam: Present soft and normal bowel sounds; Absent distention, tenderness or guarding Neurological Exam Neurological exam: Present alert, oriented X3 and normal gait Medical Decision Making Gold Inquiry Pt receiving controlled substance: No Gold was queried for this patient: No Vital Signs: 12/29/23 16:25 Temperature 99.3 F Temperature Source Oral Pulse Rate [Left Apical] 113 H Respiratory Rate 20 Blood Pressure [Left Arm] 138/98 H Blood Pressure Mean [Left Arm] 111 Blood Pressure Source [Left Arm] Automatic Cuff Blood Pressure Position [Left Arm] Sitting 02 Sat by Pulse Oximetry 97 Oxygen Delivery Method Room Air Medical Decision Narrative: Patient in no distress sitting on exam table talking with family Denies pain or discomfort at this time, Spoke with Dr Vernon in OB and discussed patient, Patient reports bleeding right now but it is her period spoke with Dr Vernon will collect urine and test for GC/Chlamydia, trichomonias and get out patient US and have the results sent to OB and have patient call an make appointment with OB for further evaluation and testing Order for outpatient Transvaginal US was faxed and patient aware that they will be calling her for appointment and time
[2023-12-29 16:52] LABS: Apearance,Urine Clear (Clear); Bilirubin,Urine 1+ (Negative); Blood, Urine 3+ (Negative); Color,Urine Amber (Yellow); Glucose,Urine (UA) Negative (Negative); Ketones,Urine TRACE (Negative); PH,Urine 8.5 (5.0-8.5); Protein,Urine 2+ (Negative)
[2023-12-29 16:53] LABS: UTC Leukocyte Esterase,Urine Negative (Negative); UTC Nitrate,Urine Negative (Negative); UTC Pregnancy Test, Urine Negative (Negative); Urobilinogen,Urine 0.2 EU/dl (0.2)
[2023-12-29 17:11] VITALS: BP 138/98; PULSE 113; RESP 20; TEMP 37.4; O2SAT 97
[2023-12-29 17:56] LABS: Microscopic, Urine URINE MICROSCOPIC (MICROSCOPIC)
[2023-12-29 18:02] LABS: Appearance,Urine CLEAR (Clear); Blood, Urine 3+ (Negative); Color,Urine ORANGE (Yellow); Glucose,Urine (UA) Negative (Negative); Ketones,Urine TRACE (Negative); Leukocyte Esterase,Urine Negative (Negative); Nitrate,Urine Negative (Negative); PH,Urine 8.5 (5.0-8.5); Protein,Urine 2+ (Negative); Specific Gravity, Urine 1.015 (1.005-1.030); Urobilinogen,Urine 0.2 EU/dl (0.2)
[2023-12-29 18:09] LABS: Bilirubin,Urine 1+ (Negative)
[2023-12-29 18:17] LABS: Bacteria,Urine 1+ /lpf; WBC,Urine Occasional #/hpf (0-3)
[2024-01-03 21:08] LABS: Neisseria gonorrhoeae, NAA Negative (Negative)
== END 2023-12-29 17:16 | disposition home or self-care (01) ==
PROVIDERS: Emergency Provider Nurse Practitioner; PCP Physician Assistant
DX: N92.6 Irregular menstruation, unspecified (principal); N94.10 Unspecified dyspareunia
CPT/HCPCS: 81001; 81003; 81025; 87491; 87591; 99204; 99212; G0463

== ENCOUNTER 2024-01-03 14:49 | Outpatient (CLI) | payer OTHER, SELFPAY ==
--- NOTE | 2024-01-03 14:53 | US_ITS ---
PROCEDURE: US TRANSVAGINAL CLINICAL INDICATION: VAGINAL BLEEDING AFTER INTERCOURSE COMPARISON: US US TRANSVAGINAL from 06/18/2021 FINDINGS: Transvaginal sonographic images of the pelvis were obtained. UTERUS: 7.0cm x 4cmx 3.9 cm retroverted with a combined endometrial thickness of 7.3mm. There is hyperechoic area within the cervix that measures 1.5 cm x 1.1 cm. LEFT OVARY: 5.0cmx2.9 cmx2.5cm with a volume of 18.4ml. Follicle 1. 2.4 cm x 1.8 cm Follicle 2. 1.8 cm x 1.2 cm RIGHT OVARY: 3.1cmx 2.9 cmx1.9 cm with a volume of 9ml. There is a dominant follicle measuring 1.4 cm x 1.4 cm x 1.1 cm. There are several other small peripheral follicles. There is a small amount of fluid around the right ovary. Both ovaries are seen and appear normal. Doppler flow to both ovaries are seen. There is no fluid in the cul-de-sac. IMPRESSION: 1. Retroverted uterus normal in shape and size. The endometrium appears normal measuring 7.3 mm. 2. There is a curious area in the cervix that measures 1.5 cm x 1.1 cm. It has the appearance of endometrial tissue. 3. Both ovaries are seen and appear normal. The left ovary has 2 dominant follicles the largest of which is 2.4 cm. 4. Her previous ultrasound showed polycystic ovaries but they do not have that appearance today. 5. The right ovary has a single dominant follicle measuring 1.4 cm and several small peripheral follicles. 6. There is no fluid in the cul-de-sac and small amount of fluid around the right ovary. Dictated by: Lucian Vernon MD 01/03/2024 17:01 Lucian Vernon MD in [place] 01/03/2024 17:01
== END 2024-01-03 23:59 | disposition home or self-care (01) ==
LOC: RAD 14:50
PROVIDERS: PCP Physician Assistant; Visit Provider Nurse Practitioner
DX: N93.9 Abnormal uterine and vaginal bleeding, unspecified (principal)
CPT/HCPCS: 76830

== ENCOUNTER 2024-03-06 12:56 | Outpatient (CLI) | payer OTHER, SELFPAY ==
--- NOTE | 2024-03-06 12:56 | US_ITS ---
PROCEDURE: US TRANSVAGINAL CLINICAL INDICATION: abnormal uterine bleeding COMPARISON: US US TRANSVAGINAL from 01/03/2024 FINDINGS: Transvaginal sonographic images of the pelvis were obtained. UTERUS: 6.5cm x 4.2cmx 3.3cm retroverted and retroflexed with a combined endometrial thickness of 3.6mm. The cervix has the appearance of 2 separate canals and could represent 2 separate cervixes. There is trace fluid in the cul-de-sac. LEFT OVARY: 3.8 cmx2.4cmx2.1cm with a volume of 10ml. There are multiple small peripheral follicles consistent with a polycystic ovary. RIGHT OVARY: 3.5 cmx 2.5 cmx2.3cm with a volume of 10.9ml. There are multiple peripheral follicles consistent with a polycystic ovary. There is a small amount of free fluid adjacent to the right ovary. There is a small cystic structure adjacent to the right ovary measuring 1.4 cm x 1.4 cm. This could represent a hydrosalpinx or follicle. The similar structure was seen on her last ultrasound 01/03/2024. Both ovaries are seen and appear polycystic. Doppler flow to both ovaries are seen. There is trace fluid in the cul-de-sac. IMPRESSION: 1. Retroverted, retroflexed uterus normal in shape and size. The endometrium is thin. 2. There appears to be 2 cervical canals. 3. Both ovaries are seen and appear polycystic. 4. There is free fluid adjacent to the right ovary and a cystic structure adjacent to the right ovary that could represent a hydrosalpinx. 5. There is trace fluid in the cul-de-sac. Dictated by: Lucian Vernon MD 03/06/2024 16:50 Lucian Vernon MD in [place] 03/06/2024 16:50
== END 2024-03-06 23:59 | disposition home or self-care (01) ==
LOC: RAD 12:56
PROVIDERS: PCP Nurse Practitioner Obstetrics & Gynecology; Visit Provider Nurse Practitioner Obstetrics & Gynecology
DX: N93.9 Abnormal uterine and vaginal bleeding, unspecified (principal)
CPT/HCPCS: 76830

== ENCOUNTER 2024-03-24 14:51 | Emergency (ER) | payer OTHER, SELFPAY ==
[2024-03-24 15:10] VITALS: BP 136/96; PULSE 133; RESP 20; TEMP 37.4; O2SAT 96; BMI 40.2
--- NOTE | 2024-03-24 15:11 | ED_ITS ---
Discharge Plan Disposition Patient Disposition: Home, Self-Care Condition: Good Prescriptions Prescriptions: New azithromycin [Zithromax] 250 mg tablet 250 mg PO UD DOSE PK Qty: 6 0RF Rx Instructions: Take two (2) tablets today, then one (1) tablet days #2 thru #5 [id number]-[id number]-[id number] [Bromfed DM] 2-30-10 mg/5 mL Syrup 5 ml PO Q6H PRN (Reason: Cough) Qty: 240 0RF No Action Caplyta 42 mg capsule 42 mg PO DAILY Qty: 30 1RF norgestimate-ethinyl estradiol [Sprintec (28)] 0.25-35 mg-mcg tablet 1 tab PO DAILY Qty: 84 3RF vilazodone 20 mg tablet 30 mg PO DAILY Rx Instructions: takes 1.5 tablets (30mg) orally daily; omeprazole 40 mg capsule,delayed release(DR/EC) 40 mg PO DAILY spironolactone 25 mg tablet 25 mg PO DAILY Patient Comments: TAKE 1 TABLET BY MOUTH ONCE DAILY FOR PCOS Referrals Follow up/Referrals: Provider,Referral, MD [Primary Care Provider] - See instructions Activity Restrictions/Add. Instructions Additional Instructions/Restrictions: Drink plenty of fluids. Take tylenol or ibuprofen for pain or fever. Take the medications as directed. Follow up with your regular doctor. GO TO THE ER FOR ANY WORSENING SYMPTOMS Clinical Impressions Clinical Impression: Pharyngitis, Acute viral syndrome Stand Alone Forms Stand Alone Forms: Work/School Release Instructions Patient Instructions: Sore Throat, DI for Pharyngitis/Tonsillopharyngitis -- Adult Print Language Print Language: Kazakh Discharge ED Provider: Mark Cespedes [facility] General Stated complaint: fever,cough sore throat body aches Time Seen by Provider: 03/24/24 15:11 Related Data Home Medications ?Medication ?Instructions ?Recorded ?Confirmed omeprazole 40 mg capsule,delayed 40 mg PO DAILY 12/29/23 03/24/24 release spironolactone 25 mg tablet 25 mg PO DAILY 12/29/23 03/24/24 vilazodone 20 mg tablet 30 mg PO DAILY 03/24/24 03/24/24 Previous Rx's ?Medication ?Instructions ?Recorded norgestimate 0.25 mg-ethinyl 1 tab PO DAILY #84 tabs 01/05/24 estradiol 35 mcg tablet (Sprintec (28)) lumateperone 42 mg capsule 42 mg PO DAILY #30 caps 02/22/24 (Caplyta) azithromycin 250 mg tablet 250 mg PO UD DOSE PK #6 tabs 03/24/24 (Zithromax) fuzopkttonazqlj-ibdjicukywhjktw-WX 5 ml PO Q6H PRN Cough #240 mL 03/24/24 2 mg-30 mg-10 mg/5 mL oral syrup (Bromfed DM) Allergies Allergy/AdvReac Type Severity Reaction Status Date / Time No Known Allergies Allergy Verified 02/16/24 15:40 [facility] Disclaimer: The information contained in this section may have been updated after the patient was seen, as this information can be updated by other users. Medical History Tachycardia Migraine Acute upper GI bleed PCOS (polycystic ovarian syndrome) H/O borderline personality disorder Anxiety and depression Allergic rhinitis Asthma Hypothyroidism Suicide attempt by drug overdose Surgical History History of wisdom tooth extraction Family History Other No significant family history Social History Smoking Status: Never smoker alcohol intake: current alcohol intake frequency: holidays/special occasions only substance use type: denies use current occupational status: unemployed Travel in the last 8 weeks: None number of children: 0 ROS Obtained: Yes All systems reviewed & no additional complaints except as documented Constitutional Constitutional: Reports chills and Reports fever(s) Eyes Eyes: Denies eye discharge ENT Ears, Nose, Mouth, and Throat: Reports as per HPI Cardiovascular Cardiovascular: Denies chest pain Respiratory Respiratory: Denies chest congestion and Reports cough Gastrointestinal Gastrointestingal: Reports nausea; Denies abdominal pain, constipation, cramping, diarrhea or vomiting Musculoskeletal Musculoskeletal: Denies arthralgias Integumentary/Breasts Skin/Breast: Denies rash Neurologic Neurologic: Denies paresthesias Physical Exam General General appearance: alert and in no apparent distress Head Head exam: atraumatic, normocephalic and normal inspection Eye Eye exam: Present normal appearance, PERRL and EOMI ENT ENT exam: Present mucous membranes moist and normal external ear exam Expanded ENT Exam TM/Canal exam: Bilateral TM: erythema and bulging Nose exam: Absent sinus tenderness Mouth exam: Present normal external inspection; Absent drooling Teeth exam: Present normal inspection Throat exam: Present tonsillar erythema, tonsillomegaly and tonsillar exudate Neck Neck exam: Present normal inspection, full ROM and trachea midline; Absent tenderness, meningismus or lymphadenopathy Chest Chest inspection: Present normal inspection and symmetric chest wall rise; Absent tenderness Respiratory Respiratory exam: Present normal lung sounds bilaterally; Absent respiratory distress, wheezes, stridor or accessory muscle use Cardiovascular Cardiovascular exam: Present regular rate and normal rhythm; Absent systolic murmur or diastolic murmur Abdominal Exam Abdominal exam: Present soft and normal bowel sounds; Absent distention, te nderness, guarding, rebound or rigidity Extremities Exam Extremities exam: Present normal inspection and normal capillary refill; Absent calf tenderness Back Exam Back exam: Present normal inspection and full ROM; Absent tenderness, CVA tenderness (R) or CVA tenderness (L) Neurological Exam Neurological exam: Present alert, oriented X3 and CN II-XII intact Psychiatric Psychiatric exam: Present normal affect and normal mood Skin Skin exam: Present warm, dry, intact and normal color Medical Decision Making Medical Records Medical records reviewed: No I reviewed the patient's medical records. Screening: Per USPSTF and CDC recommendations, given the prevalence of disease in our region, it is our hospital?s policy to screen for HIV and viral Hepatitis for all patients aged 18 and over and those with ongoing risk factors. Gold Inquiry Pt receiving controlled substance: No Lab Data Lab results reviewed: Yes I reviewed the patient's lab results.
[2024-03-24 15:21] LABS: UTC Strep Screen (Rapid) Negative (Negative)
[2024-03-24 15:56] VITALS: BP 136/96; PULSE 133; RESP 20; TEMP 37.4; O2SAT 96
[2024-03-24 16:04] LABS: Coronavirus 19, PCR Not Detected (NotDetected); Influenza A, PCR Not Detected (NotDetected); Influenza B, PCR Not Detected (NotDetected)
== END 2024-03-24 15:59 | disposition home or self-care (01) ==
PROVIDERS: Emergency Provider Nurse Practitioner Family
DX: J02.9 Acute pharyngitis, unspecified (principal); B34.9 Viral infection, unspecified
CPT/HCPCS: 87636; 87880; 99213; G0381

== ENCOUNTER 2024-03-26 17:57 | Emergency (ER) | payer OTHER, SELFPAY ==
[2024-03-26 17:59] VITALS: BP 151/109; PULSE 114; RESP 20; TEMP 36.9; O2SAT 98; BMI 40.2
[2024-03-26 18:16] VITALS: BP 151/109; PULSE 105; O2SAT 99
--- NOTE | 2024-03-26 18:21 | XR_ITS ---
PROCEDURE INFORMATION: Exam: XR Chest Exam date and time: 03/26/2024 6:57 PM Age: 23 years old Clinical indication: Dyspnea TECHNIQUE: Imaging protocol: Radiologic exam of the chest. Views: 1 view. COMPARISON: No relevant prior studies available. FINDINGS: Lungs: No consolidation. Pleural spaces: No significant pleural effusion. No pneumothorax. Heart/Mediastinum: No cardiomegaly. Bones/joints: No displaced fracture. Soft tissues: Unremarkable. IMPRESSION: No definite acute cardiopulmonary disease.
--- NOTE | 2024-03-26 18:24 | ED_ITS ---
Discharge Plan Disposition Patient Disposition: Home, Self-Care Prescriptions Prescriptions: New benzonatate 100 mg capsule 100 mg PO TID PRN (Reason: cough) 5 Days Qty: 20 0RF albuterol sulfate 90 mcg/actuation HFA aerosol inhaler 4 inh inhalation Q4H PRN (Reason: shortness of breath or wheezing) Qty: 8.5 0RF Rx Instructions: 4 puffs every 4 hours for 48 hours then as needed for shortness of breath or wheezing following No Action Caplyta 42 mg capsule 42 mg PO DAILY Qty: 30 1RF norgestimate-ethinyl estradiol [Sprintec (28)] 0.25-35 mg-mcg tablet 1 tab PO DAILY Qty: 84 3RF vilazodone 20 mg tablet 30 mg PO DAILY Rx Instructions: takes 1.5 tablets (30mg) orally daily; azithromycin [Zithromax] 250 mg tablet 250 mg PO UD DOSE PK Qty: 6 0RF Rx Instructions: Take two (2) tablets today, then one (1) tablet days #2 thru #5 pifgyefdvzetpkn-yjiofnnao-OJ [Bromfed DM] 2-30-10 mg/5 mL Syrup 5 ml PO Q6H PRN (Reason: Cough) Qty: 240 0RF omeprazole 40 mg capsule,delayed release(DR/EC) 40 mg PO DAILY spironolactone 25 mg tablet 25 mg PO DAILY Patient Comments: TAKE 1 TABLET BY MOUTH ONCE DAILY FOR PCOS Referrals Follow up/Referrals: Provider,Referral, MD [Primary Care Provider] - See instructions Activity Restrictions/Add. Instructions Additional Instructions/Restrictions: No evidence of an acute cardiopulmonary emergency and your symptoms are consistent with musculoskeletal chest and thoracic pain as discussed. Please stop vaping as discussed. You may take Tylenol and ibuprofen as needed for the pain and use your inhaler and cough medicine as needed for the cough. This should be self-limiting. Return with any significant worsening of your symptoms. Clinical Impressions Clinical Impression: Chest pain, musculoskeletal, Acute viral syndrome, Asthma exacerbation, Encounter for smoking cessation counseling Print Language Print Language: Faroese Discharge ED Provider: Jesus Manuel Ruff General Adult HPI General Chief complaint: Upper Respiratory Infection Stated complaint: soa chest and lung pain Time Seen by Provider: 03/26/24 18:08 Mode of Arrival: Ambulatory Source of Information: Patient Limitations: No Limitations Description of Symptoms (Recalled from ER Triage Doc. by RN): Reports being seen in the [facility] on Wednesday and diagnosed with a sore throat. States she was prescribed a zpack but is not getting any better. Complaint of cough, congestion, sore throat and headache. History of Present Illness HPI narrative: Patient is a 23-year-old female with a history of asthma who vapes and is also on hormonal contraceptive therapy presenting today with chest pain and dyspnea. She states that she was seen in the urgent treatment clinic last week for cough congestion sore throat and headache and bodyaches was diagnosed with sore throat and given a Z-Abebe. She states that since that time she has had worsening chest pain and shortness of breath the chest pain is associated with cough and movement worsen to the touch and also is pleuritic in nature. No leg swelling no hemoptysis no history of PE or DVT that she is aware of. She has not had an asthma exacerbation in years and is not on any controller medications for that. Related Data Home Medications ?Medication ?Instructions ?Recorded ?Confirmed omeprazole 40 mg capsule,delayed 40 mg PO DAILY 12/29/23 03/24/24 release spironolactone 25 mg tablet 25 mg PO DAILY 12/29/23 03/24/24 vilazodone 20 mg tablet 30 mg PO DAILY 03/24/24 03/24/24 Previous Rx's ?Medication ?Instructions ?Recorded norgestimate 0.25 mg-ethinyl 1 tab PO DAILY #84 tabs 01/05/24 estradiol 35 mcg tablet (Sprintec (28)) lumateperone 42 mg capsule 42 mg PO DAILY #30 caps 02/22/24 (Caplyta) azithromycin 250 mg tablet 250 mg PO UD DOSE PK #6 tabs 03/24/24 (Zithromax) chbjdvpjgvuplbp-cvcolubcrersvxr-BU 5 ml PO Q6H PRN Cough #240 mL 03/24/24 2 mg-30 mg-10 mg/5 mL oral syrup (Bromfed DM) albuterol sulfate 90 mcg/actuation 4 inh inhalation Q4H PRN shortness 03/26/24 aerosol inhaler of breath or wheezing #8.5 grams benzonatate 100 mg capsule 100 mg PO TID PRN cough 5 days #20 03/26/24 caps Allergies Allergy/AdvReac Type Severity Reaction Status Date / Time No Known Allergies Allergy Verified 02/16/24 15:40 [facility] Disclaimer: The information contained in this section may have been updated after the patient was seen, as this information can be updated by other users. Medical History Tachycardia Migraine Acute upper GI bleed PCOS (polycystic ovarian syndrome) H/O borderline personality disorder Anxiety and depression Allergic rhinitis Asthma Hypothyroidism Suicide attempt by drug overdose Surgical History History of wisdom tooth extraction Family History Other No significant family history Social History Smoking Status: Current every day smoker alcohol intake: current alcohol intake frequency: holidays/special occasions only substance use type: denies use current occupational status: unemployed Travel in the last 8 weeks: None number of children: 0 Other Medical History Have you received the Flu Vaccine for this season: No Have you received the Pneumonia Vaccine: No ROS Obtained: Yes All systems reviewed & no additional complaints except as documented Physical Exam General General appearance: alert and in no apparent distress Chest Chest inspection: Present tenderness (Anterior tenderness) Respiratory Respiratory exam: Present normal lung sounds bilaterally; Absent respiratory distress, wheezes, stridor, accessory muscle use or prolonged expiratory phase Cardiovascular Cardiovascular exam: Present normal rhythm and tachycardia Abdominal Exam Abdominal exam: Present soft and distention Neurological Exam Neurological exam: Present alert and oriented X3 Medical Decision Making Medical Records Screening: Per USPSTF and CDC recommendations, given the prevalence of disease in our region, it is our hospital?s policy to screen for HIV and viral Hepatitis for all patients aged 18 and over and those with ongoing risk factors. Gold Inquiry Pt receiving controlled substance: No Vital Signs: 03/26/24 17:59 03/26/24 18:16 03/26/24 18:30 Temperature 98.5 F Temperature Source Oral Pulse Rate 105 H 105 H Pulse Rate [Radial] 114 H Respiratory Rate 20 Blood Pressure 151/109 H 131/92 H Blood Pressure [Right Arm] 151/109 H Blood Pressure Mean 105 Blood Pressure Mean [Right Arm] 123 Blood Pressure Source [Right Arm] Automatic Cuff Blood Pressure Position [Right Arm] Sitting 02 Sat by Pulse Oximetry 98 99 98 Oxygen Delivery Method Room Air Room Air Room Air 03/26/24 19:31 Temperature Temperature Source Pulse Rate 99 H Pulse Rate [Radial] Respiratory Rate Blood Pressure 146/86 H Blood Pressure [Right Arm] Blood Pressure Mean Blood Pressure Mean [Right Arm] Blood Pressure Source [Right Arm] Blood Pressure Position [Right Arm] 02 Sat by Pulse Oximetry 100 Oxygen Delivery Method Lab Data Lab results reviewed: Yes I reviewed the patient's lab results. Lab Results 03/26/24 18:40: WBC 4.2 L, RBC 4.74, Hgb 14.6, Hct 43.3, MCV 91.2, MCH 30.8, MCHC 33.8, RDW 13.1, Plt Count 250, MPV 8.9, Neut % (Auto) 50.8, Lymph % (Auto) 40.1, [place] % (Auto) 7.5, Eos % (Auto) 0.4, Baso % (Auto) 1.1, Neut # (Auto) 2.1, Lymph # (Auto) 1.7, [place] # (Auto) 0.3, Eos # (Auto) 0.0, Baso # (Auto) 0.1, D- Dimer 0.37, Sodium 139, Potassium 3.7, Chloride 104, Carbon Dioxide 25, Anion Gap 13.7, BUN 5 L, Creatinine 0.60, Estimated Creat Clear 230, Estimated GFR 124, Est GFR ( Amer) 150, Glucose 93, Calcium 8.9, Total Bilirubin 0.4, AST 35, ALT 58, Alkaline Phosphatase 62, Troponin I < 0.01, Total Protein 7.6, Albumin 4.3, Globulin 3.3 H, Albumin/Globulin Ratio 1.3 03/26/24 18:40 03/26/24 18:40 Orders (Tests/Meds): ED MEDICATIONS Discontinued Medications Generic Name Dose Route Start Last Admin Trade Name Freq PRN Reason Stop Dose Admin Albuterol/Ipratropium 3 ml 03/26/24 18:21 03/26/24 18:55 Ipratropium/Albuterol 3 Ml Neb 03/26/24 18:22 3 ml ONCE ONE Administration Dexamethasone Sodium Phosphate 10 mg 03/26/24 18:21 03/26/24 18:55 Dexamethasone 4mg/Ml 1ml Vial IV 03/26/24 18:22 10 mg ONCE ONE Administration Sodium Chloride 1,000 mls @ 999 mls/hr 03/26/24 18:30 03/26/24 18:56 Sod Chlor 0.9% 1000ml Bag IV 03/26/24 19:30 999 mls/hr .Q1H1M SHITAL Administration Ketorolac Tromethamine 15 mg 03/26/24 18:21 03/26/24 18:55 Ketorolac 30mg/Ml Vial IV 03/26/24 18:22 15 mg ONCE ONE Administration ORDERS Category Date Time Status CXR --portable [XR chest portable] Stat Exams 03/26/24 18:21 Taken CBC w/Auto Diff [Complete Blood Count Auto Diff] Stat Lab 03/26/24 18:40 Completed CMP [Comprehensive Metabolic Panel] Stat Lab 03/26/24 18:40 Completed D-Dimer Stat Lab 03/26/24 18:40 Completed HIV (1&2) Antibody Rapid Stat Lab 03/26/24 18:40 Received Hep C Ab with Reflex to RNA Stat Lab 03/26/24 18:40 Received Trop I [Troponin I] Stat Lab 03/26/24 18:40 Completed Troponin I Q3H Lab 03/26/24 21:30 Ordered Troponin I Q3H Lab 03/27/24 00:30 Ordered Medical Decision Narrative: Patient with above history and physical most likely presenting with musculoskeletal chest wall discomfort in the setting of viral syndrome. She was swabbed for COVID and flu a few days ago which was negative. She has not any distress she is tachycardic and is on oral contraceptive medications pulmonary embolism is possible we will get a D-dimer to rule this out utilize years criteria with a cutoff of 1.[address] PE. Additionally this could be pleurisy or myocarditis we will get a single troponin and EKG and administer IV fluids and Toradol. Lastly with her history of asthma and ongoing vaping this falls into the realm of 1 associated asthma exacerbation. Nebs and steroids have been administered and will reassess. Chest x-ray performed which I personally interpreted which shows no acute cardiopulmonary emergency Reassessment 742 patient feeling much better serial exams benign working diagnosis musculoskeletal chest and thoracic discomfort in the setting of a viral syndrome and asthma exacerbation. Supportive care discussed and prescription sent to her pharmacy. She has been advised to stop her azithromycin as there is no evidence of a bacterial infection. Patient was discharged in stable condition peer Critical Care Critical Care Time Critical Care Time: No
--- NOTE | 2024-03-26 18:25 | ECG_ITS ---
APPROVED REPORT Exam: Resting ECG HR:91 bpm ECG Measurements Heart Rate 91 AXES KS 150 P 15 QRSd 82 QRS 82 QT 345 T 37 QTc 394 Conclusion SINUS RHYTHM LOW QRS VOLTAGE IN PRECORDIAL LEADS [QRS DEFLECTION < 1.0 mV IN CHEST LEADS] BORDERLINE ECG UNCONFIRMED REPORT Electronically signed by : Mark Ruff, 03/26/2024 23:09:34
[2024-03-26 18:30] VITALS: BP 131/92; PULSE 105; O2SAT 98
[2024-03-26] MEDS: DEXAMETHASONE 4MG/ML 1ML VIAL 10 MG IV (18:55)
[2024-03-26] MEDS: IPRATROPIUM/ALBUTEROL 3 ML NEB IH (18:55)
[2024-03-26] MEDS: KETOROLAC 30MG/ML VIAL 15 MG IV (18:55)
[2024-03-26] MEDS: 0.9 % SODIUM CHLORIDE 1000ML 1,000 ML 999 ML IV (18:56)
[2024-03-26 18:58] LABS: Albumin Level 4.3 g/dl (3.5-5.0); Chloride 104 mmol/L (98-107)
[2024-03-26 18:59] LABS: Potassium 3.7 mmoL/L (3.5-5.1); Sodium 139 mmol/L (136-145)
[2024-03-26 19:01] LABS: Alanine Aminotransferase 58 U/L (12-78); Anion Gap 13.7 mEq/L (5-15); Aspartate Amino Transferase 35 U/L (14-36); Blood Urea Nitrogen 5 mg/dl (7-17); Carbon Dioxide 25 mmol/L (22.0-30.0); Creatinine Clearance Estimated 230 mL/min (50-200); Estimated Glomerular Filt Rate 124 ml/min (>60); GFR (African American) 150 ML/MIN (>60)
[2024-03-26 19:02] LABS: Albumin/Globulin Ratio 1.3 (1.1-1.8); Alkaline Phosphatase 62 U/L (38-126); Basophils # 0.1 K/mm3 (0-0.2); Basophils % 1.1 % (0.1-2.0); Bilirubin,Total 0.4 mg/dl (0.2-1.3); Calcium 8.9 mg/dl (8.4-10.2); Eosinophils % 0.4 % (0.1-12.0); Globulin 3.3 g/dL (1.3-3.2); Glucose 93 mg/dl (74-100); Hematocrit 43.3 % (37.0-47.0); Hemoglobin 14.6 g/dL (12.2-16.2); Lymphocytes # 1.7 K/mm3 (0.7-4.5); Lymphocytes % 40.1 % (10-50); Mean Corpuscular HGB Conc 33.8 g/dL (31.8-35.4); Mean Corpuscular Hemoglobin 30.8 pg (27.0-31.2); Mean Corpuscular Volume 91.2 fl (81-99); Mean Platelet Volume 8.9 fl (7.4-10.4); Monocytes # 0.3 K/mm3 (0.1-1.0); Monocytes % 7.5 % (1.7-9.3); Neutrophils # 2.1 K/mm3 (1.8-7.8); Neutrophils % 50.8 % (37.0-80.0); Platelet Count 250 K/mm3 (142-424); Red Blood Count 4.74 M/mm3 (4.20-5.40); Red Cell Distribution Width 13.1 % (11.5-17.5); Total Protein,Serum 7.6 g/dl (6.3-8.2); White Blood Count 4.2 K/mm3 (4.8-10.8)
[2024-03-26 19:18] LABS: D-Dimer 0.37 ug/mL (0.0-0.5)
[2024-03-26 19:28] LABS: Troponin I < 0.01 ng/ml (0.00-0.034)
[2024-03-26 19:31] VITALS: BP 146/86; PULSE 99; O2SAT 100
[2024-03-26 19:40] VITALS: BP 146/86; PULSE 104; RESP 18; TEMP 36.9; O2SAT 97
[2024-03-26 22:32] LABS: HIV (1&2) Antibody Rapid NONREACTIVE (NONREACTIVE)
[2024-03-28 09:28] LABS: HCV Ab Non Reactive (Non Reactive)
== END 2024-03-26 19:48 | disposition home or self-care (01) ==
PROVIDERS: Emergency Provider Student in an Organized Health Care Education/Training Program
DX: R07.9 Chest pain, unspecified (principal); B34.9 Viral infection, unspecified; J45.909 Unspecified asthma, uncomplicated
CPT/HCPCS: 71045; 80053; 84484; 85025; 85378; 86803; 87389; 93005; 96361; 96374; 99285; J1100; J1885; J7030; J7620